=== PATIENT | female | born 1980 | race Caucasian/White ===

== ENCOUNTER 2016-03-02 09:31 | Emergency (ER) | payer OTHER ==
--- NOTE | 2016-03-02 15:08 | ED ORDER SUMMARY ---
..... Patient: TREMAYNE QURESHI OrderSheet [facility] VisitID: [id number] [address] [place] [address] 35y, F Registration Date/Time: 03/02/2016 ORDER SHEET Weight: 43.3 kg (measured) Allergies: NSAIDs GENERAL ORDERS: - (OBTAIN ACTUAL WEIGHT PLEASE.) (10:03/02/2016 Philly GAMA) (Ack 10:37 TBergley) (10:55 JSimbeck R.N.) -- (LAST TWO ED RECORDS FROM [facility]. (THIS WEEK I THINK)) (10:03/02/2016 Philly GAMA) (Ack 10:37 TBergley) (13:46 JSimbeck R.N.) CBC w Diff Urgent (10:34 03/02/2016 Philly GAMA) (10:37 JSimbeck R.N.) (Ack 10:37 TBergley) (10:37 TBergley) CMP Urgent (10:34 03/02/2016 Philly GAMA) (10:37 JSimbeck R.N.) (Ack 10:37 TBergley) (10:37 TBergley) UA-Culture if indicated Urgent (10:34 03/02/2016 Philly GAMA) (Ack 10:37 TBergley) (13:16 JSimbeck R.N.) Urine Urgent (10:34 03/02/2016 Philly GAMA) (Ack 10:37 TBergley) (13:16 JSimbeck R.N.) Urine Drug Screen Urgent (10:34 03/02/2016 Philly GAMA) (Ack 10:37 TBergley) (13:16 JSimbeck R.N.) - (GATORIDE) (14:03 03/02/2016 Philly GAMA) (14:05 TBergley) MEDICATION ORDERS: IV FLUIDS: IV NS : initial bolus none -, then 1000 mL/hr for 2h (NOW); Urgent (10:30 03/02/2016 Philly GAMA) (10:54 JSimbeck R.N.) Benadryl IV 50 mg (NOW) (10:33 03/02/2016 Philly GAMA) (Ack 10:55 Alfonso R.N.) (11:04 Alfonso R.N.) Haldol IV 4 mg (NOW) (10:33 03/02/2016 Philly GAMA) (10:55 Alfonso R.N.) Haldol IV 2 mg (NOW) (11:05 03/02/2016 Philly GAMA) (11:27 Alfonso R.N.) Ceftriaxone IV 1 gm/50mL (NOW) (14:03 03/02/2016 Philly GAMA) (Ack 14:53 KIANAimbeck R.N.) (14:59 Mattieeck R.N.) ORDER SHEET NOTES: [Electronically signed by Dusty León R.N. (18:42 03/02/2016)] [Electronically signed by Garrett Rajan MD (13:23 03/04/2016)] [Electronically locked/signed by Dusty León R.N. (18:42 03/02/2016)]
--- NOTE | 2016-03-02 15:08 | ED ORDER SUMMARY ---
..... Patient: TREMAYNE QURESHI OrderSheet [facility] VisitID: [id number] [address] [place] [address] 35y, F Registration Date/Time: 03/02/2016 ORDER SHEET Weight: 43.3 kg (measured) Allergies: NSAIDs GENERAL ORDERS: - (OBTAIN ACTUAL WEIGHT PLEASE.) (10:03/02/2016 Philly GAMA) (Ack 10:37 TBergley) (10:55 JSimbeck R.N.) -- (LAST TWO ED RECORDS FROM [facility] (THIS WEEK I THINK)) (10:03/02/2016 Philly GAMA) (Ack 10:37 TBergley) (13:46 JSimbeck R.N.) CBC w Diff Urgent (10:34 03/02/2016 Philly GAMA) (10:37 JSimbeck R.N.) (Ack 10:37 TBergley) (10:37 TBergley) CMP Urgent (10:34 03/02/2016 Philly GAMA) (10:37 JSimbeck R.N.) (Ack 10:37 TBergley) (10:37 TBergley) UA-Culture if indicated Urgent (10:34 03/02/2016 Philly GAMA) (Ack 10:37 TBergley) (13:16 JSimbeck R.N.) Urine Urgent (10:34 03/02/2016 Philly GAMA) (Ack 10:37 TBergley) (13:16 JSimbeck R.N.) Urine Drug Screen Urgent (10:34 03/02/2016 Philly GAMA) (Ack 10:37 TBergley) (13:16 JSimbeck R.N.) - (GATORIDE) (14:03 03/02/2016 Philly GAMA) (14:05 TBergley) MEDICATION ORDERS: IV FLUIDS: IV NS : initial bolus none -, then 1000 mL/hr for 2h (NOW); Urgent (10:30 03/02/2016 Philly GAMA) (10:54 JSimbeck R.N.) Benadryl IV 50 mg (NOW) (10:33 03/02/2016 Philly GAMA) (Ack 10:55 Alfonso R.N.) (11:04 Alfonso R.N.) Haldol IV 4 mg (NOW) (10:33 03/02/2016 Philly GAMA) (10:55 Alfonso R.N.) Haldol IV 2 mg (NOW) (11:05 03/02/2016 Philly GAMA) (11:27 Alfonso R.N.) Ceftriaxone IV 1 gm/50mL (NOW) (14:03 03/02/2016 Philly GAMA) (Ack 14:53 KIANAimbeck R.N.) (14:59 Mattieeck R.N.) ORDER SHEET NOTES: [Electronically signed by Dusty León R.N. (18:42 03/02/2016)] [Electronically signed by Garrett Rajan MD (13:23 03/04/2016)] [Electronically locked/signed by Dusty León R.N. (18:42 03/02/2016)]
--- NOTE | 2016-03-02 15:08 | ED NURSING NOTES ---
Clinical Report - Nurses [facility] [address] [place] [address] 03/02/2016 9:31 Patient: [id number] TRI[facility] Triage time 09:43. Acuity: LEVEL 3. Chief Complaint: ABDOMINAL PAIN, NAUSEA, VOMITING and DIARRHEA and (unplanned 10 lb weight loss in 2 weeks). 09:56 03/02/16. SOLE COMA SCORE: Emmett Coma Scale: 15- eyes open spontaneously (4); best verbal response- oriented x 4 (5); best motor response- obeys commands (6). --09:56 Dusty León R.N. 09:43 03/02/16. BP: 103/79 taken on the left arm, while sitting. HR: 102. RR: 16. O2 saturation: 98% on room air. Temp: 98.1 F (oral). Pain level now: 10/03. --09:56 Dusty León R.N. Height/Length: 64 inches Per Patient. --09:51 Dusty León R.N.. <<STRICKEN ENTRY-- Weight: 43.5 kg stated. BMI: 16.5. --END STRIKE>> Correction --09:51 Dusty León R.N.. Weight: 43.3 kg measured. BMI: 16.4. --09:51 Dusty León R.N. Medications Zofran ODT Oral (Tablet Dispersible 4 mg) 1 - 2 tabs, Q6 to 8 hours as needed, Nausea. --09:45 Dusty León R.N. Prazosin HCl Oral (Capsule 1 mg) 1 capsule, at bedtime, Nightmares. --09:45 Dusty León R.N. Reglan Oral (Tablet 10 mg) 1 tablet, 3x a day as needed, Nausea/vomiting. --09:45 Dusty León R.N. HydrOXYzine HCl Oral (Tablet 50 mg) 1 - 2 tabs, q6 hours as needed, Anxiety. --09:46 Dusty León R.N. TraZODone HCl Oral (Tablet 50 mg) 1 - 2, at bedtime. --09:46 Dusty León R.N. Phenergan (Promethazine) Rectal. --:49 Dusty León R.N. Pepto-Bismol Oral. --:49 Dusty León R.N. Allergies NSAIDs. --09:45 Dusty León R.N. History Arrived by private vehicle. Historian: patient. Onset. (2 weeks). ( Unable to retain any foods or fluids). Last oral intake by patient was (Friday (fluids)). SOCIAL HX: Heavy tobacco smoker (cigarette)- 1 pack per day. Occasional alcohol use. History of occasional drug use: marijuana. ABUSE ASSESSMENT: No report of abuse. SELF HARM ASSESSMENT: A self harm assessment was performed. The patient answered "no" to the question "Do you have thoughts of harming or killing yourself?" and "Have you recently had thoughts about harming or killing others?". --:56 Dusty León R.N. PROBLEMS: Gastritis. Hypokalemia. Anxiety Reaction. Neck Injury. Neck Pain. Pelvic Pain. Endometriosis. Substance Abuse. GI Bleeding. Leukocytosis. Gastroenteritis. Immunizations. Abdominal Pain. Vomiting. Gastroesophageal Reflux. Otitis Media. Gastroesophageal Reflux Disease. Irritable Bowel Syndrome. Pneumonia. Knee Injury. --:49 Dusty León R.N. Pelvic Inflammatory Disease [RuleOut]. Ovarian Torsion [RuleOut]. Gastritis [RuleOut]. --:49 Dusty León R.N. The following entry was modified by Dusty León R.N., 10:30 <<STRICKEN ENTRY-- LNMP - Last Normal Menstrual Period. --20:21 Dusty León R.N. --END STRIKE>>. ADDITIONAL SURGERIES: Colonoscopy. . Laparoscopy. Tubal Ligation. --09:50 Dusty León R.N. Interventions ID band on patient. To treatment room. --:56 Dusty León R.N. PHYSICAL ASSESSMENT late entry -09:51. To room via wheelchair. GENERAL / NEURO / PSYCH: Alert. Oriented X 4. Appears in pain. ( lethargic, weak, c/o chills). HEENT: Mucous membranes are pink. RESPIRATORY: Respirations not labored. Breath sounds within normal limits. CVS: Capillary refill less than 2 seconds. GI / : The patient has had nausea and diarrhea. Emesis noted. Abdominal tenderness diffusely (RUQ is the most painful, even to light touch). Guarding present. Absent bowel sounds in all quadrants. SKIN: Skin is warm and dry. --10:21 Dusty León R.N. NURSING PROGRESS NOTES late entry -09:55. Pulse oximeter and NIBP monitor placed on patient; monitor alarms on. Head of bed elevated. Reassurance given. Two patient identifiers checked. Call light placed in reach. Bed placed in lowest position. Brakes of bed on. Patient ready for evaluation- chart flagged. --10:22 Dusty León R.N. 10:05 03/02/2016 Site #1 started via IV in the right hand with an 22g angiocath, with aseptic technique and good blood return; two attempts. Blood drawn: rainbow set. Labeled in the presence of the patient and sent to the lab. Saline lock flushed with 10 mL saline. --10:22 Dusty León R.N. 10:45 03/02/2016 Started bag #1 1000 mL IV Fluids IV NS (Saline); at 1000 mL/hr over 1 hour(s) via site #1. Allergies verified and confirmed 5 rights. IV patency established. IV site checked: no pain, redness, or swelling. IV flushed thoroughly pre- and post-medication administration. --10:54 Dusty León R.N. 10:46 03/02/2016 Benadryl (DiphenhydrAMINE HCl) IVP 50 mg given over 2 minute(s) via site #1. Allergies verified, confirmed 5 rights and sedative warning given to the patient. IV patency established. IV site checked: no pain, redness, or swelling. IV flushed thoroughly pre- and post-medication administration. IVP given by RN. --11:04 Dusty León R.N. 10:48 03/02/2016 HALDOL (Haloperidol Lactate) IVP 4 mg given over 1 minute(s) via site #1. Allergies verified, confirmed 5 rights and sedative warning given to the patient. IV patency established. IV site checked: no pain, redness, or swelling. IV flushed thoroughly pre- and post-medication administration. IVP given by RN. --10:55 Dusty León R.N. 11:04 03/02/2016 Benadryl IVP Response: no adverse reaction symptoms have improved. --11:04 Dusty León R.N. 11:04 03/02/2016 HALDOL IVP Response: no adverse reaction symptoms have improved. --11:04 Dusty León R.N. 11:20 03/02/2016 HALDOL (Haloperidol Lactate) IVP 2 mg given over 1 minute(s) via site #1. Allergies verified, confirmed 5 rights and sedative warning given to the patient. IV patency established. IV site checked: no pain, redness, or swelling. IV flushed thoroughly pre- and post-medication administration. IVP given by RN. --11:27 Dusty León R.N. 11:52 03/02/2016 HALDOL IVP Response: no adverse reaction symptoms have improved. --11:52 Dusty León R.N. 11:55 03/02/2016 IV Fluids IV NS Bag Change: bag #1 completed. Total amount infused: 1000. STARTED bag #2 (1000 mL) at 1000 mL/hr. Confirmed 5 rights. IV patency established. IV site checked: no pain, redness, or swelling. IV flushed thoroughly. --11:58 Dusty León R.N. 10:00 03/02/16. BP: 114/76. HR: 85. RR: 16. O2 saturation: 99% on room air. Pain level now: 10/03. --12:07 Dusty León R.N. 10:30 03/02/16. BP: 111/75. HR: 89. RR: 16. O2 saturation: 97% on room air. Pain level now: 10/03. --12:09 Dusty León R.N. 11:30 03/02/16. BP: 108/70. HR: 81. RR: 16. O2 saturation: 96%. Pain level now: 05/03. --12:10 Dusty León R.N. 11:30 03/02/16. BP: 102/84. HR: 80. RR: 16. O2 saturation: 95%. Pain level now: 0/10. Additional comments: asleep. --12:14 Dusty León R.N. 12:14 03/02/16. Pulse oximeter and NIBP monitor placed on patient; monitor alarms on. Head of bed elevated. Reassurance given. Call light placed in reach. Side rails up x 2. Bed placed in lowest position. Brakes of bed on. --12:14 Dusty León R.N. 13:00 03/02/2016 IV Fluids IV NS Discontinued: bag #2 completed. Total amount infused: 1000 mL. IV patency established. IV site checked: no pain, redness, or swelling. IV flushed thoroughly. --13:17 Dusty León R.N. late entry -13:16. Head of bed elevated. Reassurance given. Reassessment after fluids administered and medication administered. She is calm and resting quietly. Overall patient status is improved. ( C/o of feeling very weak. She was able to walk to the BR and provided a urine sample. No nausea.). Call light placed in reach. Side rails up x 1. Bed placed in lowest position. Brakes of bed on. Patient waiting for lab results. --13:29 Dusty León R.N. 12:00 03/02/16. BP: 113/73. HR: 82. RR: 16. O2 saturation: 96% on room air. Pain level now: 0/10. --13:30 Dusty León R.N. 12:30 03/02/16. BP: 108/75. HR: 84. RR: 16. O2 saturation: 97% on room air. Pain level now: 0/10. --13:31 Dusty León R.N. 13:30 03/02/16. BP: 100/66. HR: 82. RR: 16. O2 saturation: 96% on room air. Pain level now: 0/10. --13:31 Dusty León R.N. 14:55 03/02/2016 Started 1 gm of Ceftriaxone IVPB in bag #1 50 mL; at 100 mL/hr over 30 minute(s) via site #1; Allergies verified and confirmed 5 rights. IV patency established. IV site checked: no pain, redness, or swelling. IV flushed thoroughly pre- and post-medication administration. --14:59 Dusty León R.N. DISPOSITION / DISCHARGE Condition at departure: improved. The goals identified in the patient's plan of care were met. No learning barriers present. Discharge instructions provided and reviewed with the patient. Reviewed medication(s) side effects, precautions, dosing and course information. Reviewed need for increased fluid intake. Patient verbalized understanding. Written instructions provided in Chinese. The patient was discharged home and accompanied by broom machine operator. She left the Emergency Department ambulatory and via private vehicle. Patient driving. --15:30 Hayden Healy R.N. 15:29 03/02/16. BP: 101/64. HR: 98. RR: 16. O2 saturation: 97% on room air. Temp: 98.8 F (oral). --15:30 Hayden Healy R.N. Departure time: 1330 PM. --15:31 Hayden Healy R.N. 15:31 03/02/16. Pain level now 0/10. --15:31 Hayden Healy R.N. 15:03/02/2016 Site #1 removed upon discharge. --15:31 Hayden Healy R.N. 15:31 03/02/2016 Ceftriaxone IVPB Discontinued: bag #1 completed. Total amount infused: 50 mL. IV patency established. IV site checked: no pain, redness, or swelling. IV flushed thoroughly. --15:31 Hayden Healy R.N. Locked/Released at 03/02/2016 18:42 by Dusty León R.N.
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
--- NOTE | 2016-03-04 13:23 | ED MED RECONCILIATION SUMMARY ---
Patient: TREMAYNE QURESHI Medication Reconciliation Report [facility] VisitID: [id number] [address] [place] [address] 35y, F Registration Date/Time: 03/02/2016 Weight: 43.3 kg Height/Length: 64 in. BMI: 16.4 ALLERGIES: NSAIDs The patient's Home Medications are listed below: THE FOLLOWING MEDICATIONS NEED TO BE RECONCILED: HydrOXYzine HCl Oral (50 mg) 1 - 2 tabs, q6 hours, Anxiety Pepto-Bismol Oral Phenergan (Promethazine) Rectal Prazosin HCl Oral (1 mg) 1 capsule, at bedtime, Nightmares Reglan Oral (10 mg) 1 tablet, 3x a day, Nausea/vomiting TraZODone HCl Oral (50 mg) 1 - 2, at bedtime Zofran ODT Oral (4 mg) 1 - 2 tabs, Q6 to 8 hours, Nausea The source(s) of the original Home Medication information: Not obtained. The following Medications were given to the patient in the Emergency Department: IV NS IV Fluids bolus 0, then 1000 mL/hr, administered: 03/02/2016 10:45:00 AM HALDOL [IVP] IVP 4 mg, administered: 03/02/2016 10:48:00 AM Benadryl [IVP] IVP 50 mg, administered: 03/02/2016 10:46:00 AM HALDOL [IVP] IVP 2 mg, administered: 03/02/2016 11:20:00 AM Ceftriaxone [IVPB] IVPB bolus 0, then 1 gm 100 mL/hr, administered: 03/02/2016 2:55:00 PM The following Medications were prescribed to the patient: Macrodantin 100 mg: take 1 capsule orally every 6 hours for 7 days. No refills. Substitution is permissible. -- Garrett Rajan MD
--- NOTE | 2016-03-04 13:23 | ED MAR SUMMARY ---
..... Medication Administration Record [facility] [address] [place] [address] Patient: TREMAYNE QURESHI Visit ID: [id number] 35y, F Weight: 43.3 kg Height/Length: 64 in BMI: 16.4 ALLERGIES: NSAIDs Start 10:45 03/02/2016 Dusty León R.N., Stop 13:00 03/02/2016 Dusty León R.N. Medication Administered: IV NS (SALINE), Dose: IV Fluids over 1 hour(s), Rate: 1000 mL/hr, Dispensed: 1000 mL bag, Site: #1 right hand. Medication Ordered: IV NS : initial bolus none -, then 1000 mL/hr for 2h (NOW); Urgent. Given 10:46 03/02/2016 Dusty León R.N. Medication Administered: BENADRYL [IVP] (DIPHENHYDRAMINE HCL), Dose: 50 mg IVP over 2 minute(s), Site: #1 right hand. Medication Ordered: Benadryl IV 50 mg (NOW). Given 10:48 03/02/2016 Dusty León R.N. Medication Administered: HALDOL [IVP] (HALOPERIDOL LACTATE), Dose: 4 mg IVP over 1 minute(s), Site: #1 right hand. Medication Ordered: Haldol IV 4 mg (NOW). Given 11:20 03/02/2016 Dusty León R.N. Medication Administered: HALDOL [IVP] (HALOPERIDOL LACTATE), Dose: 2 mg IVP over 1 minute(s), Site: #1 right hand. Medication Ordered: Haldol IV 2 mg (NOW). Start 14:55 03/02/2016 Dusty León R.N., Stop 15:31 03/02/2016 Hayden Healy R.N. Medication Administered: CEFTRIAXONE [IVPB], Dose: 1 gm IVPB over 30 minute(s), Rate: 100 mL/hr, Dispensed: 50 mL bag, Site: #1 right hand. Medication Ordered: Ceftriaxone IV 1 gm/50mL (NOW).
--- NOTE | 2016-03-04 13:23 | ED MAR SUMMARY ---
..... Medication Administration Record [facility] [address] [place] [address] Patient: TREMAYNE QURESHI Visit ID: [id number] 35y, F Weight: 43.3 kg Height/Length: 64 in BMI: 16.4 ALLERGIES: NSAIDs Start 10:45 03/02/2016 Dusty León R.N., Stop 13:00 03/02/2016 Dusty León R.N. Medication Administered: IV NS (SALINE), Dose: IV Fluids over 1 hour(s), Rate: 1000 mL/hr, Dispensed: 1000 mL bag, Site: #1 right hand. Medication Ordered: IV NS : initial bolus none -, then 1000 mL/hr for 2h (NOW); Urgent. Given 10:46 03/02/2016 Dusty León R.N. Medication Administered: BENADRYL [IVP] (DIPHENHYDRAMINE HCL), Dose: 50 mg IVP over 2 minute(s), Site: #1 right hand. Medication Ordered: Benadryl IV 50 mg (NOW). Given 10:48 03/02/2016 Dusty León R.N. Medication Administered: HALDOL [IVP] (HALOPERIDOL LACTATE), Dose: 4 mg IVP over 1 minute(s), Site: #1 right hand. Medication Ordered: Haldol IV 4 mg (NOW). Given 11:20 03/02/2016 Dusty León R.N. Medication Administered: HALDOL [IVP] (HALOPERIDOL LACTATE), Dose: 2 mg IVP over 1 minute(s), Site: #1 right hand. Medication Ordered: Haldol IV 2 mg (NOW). Start 14:55 03/02/2016 Dusty León R.N., Stop 15:31 03/02/2016 Hayden Healy R.N. Medication Administered: CEFTRIAXONE [IVPB], Dose: 1 gm IVPB over 30 minute(s), Rate: 100 mL/hr, Dispensed: 50 mL bag, Site: #1 right hand. Medication Ordered: Ceftriaxone IV 1 gm/50mL (NOW).
--- NOTE | 2016-03-04 13:23 | ED MED RECONCILIATION SUMMARY ---
Patient: TREMAYNE QURESHI Medication Reconciliation Report [facility] VisitID: [id number] [address] [place] [address] 35y, F Registration Date/Time: 03/02/2016 Weight: 43.3 kg Height/Length: 64 in. BMI: 16.4 ALLERGIES: NSAIDs The patient's Home Medications are listed below: THE FOLLOWING MEDICATIONS NEED TO BE RECONCILED: HydrOXYzine HCl Oral (50 mg) 1 - 2 tabs, q6 hours, Anxiety Pepto-Bismol Oral Phenergan (Promethazine) Rectal Prazosin HCl Oral (1 mg) 1 capsule, at bedtime, Nightmares Reglan Oral (10 mg) 1 tablet, 3x a day, Nausea/vomiting TraZODone HCl Oral (50 mg) 1 - 2, at bedtime Zofran ODT Oral (4 mg) 1 - 2 tabs, Q6 to 8 hours, Nausea The source(s) of the original Home Medication information: Not obtained. The following Medications were given to the patient in the Emergency Department: IV NS IV Fluids bolus 0, then 1000 mL/hr, administered: 03/02/2016 10:45:00 AM HALDOL [IVP] IVP 4 mg, administered: 03/02/2016 10:48:00 AM Benadryl [IVP] IVP 50 mg, administered: 03/02/2016 10:46:00 AM HALDOL [IVP] IVP 2 mg, administered: 03/02/2016 11:20:00 AM Ceftriaxone [IVPB] IVPB bolus 0, then 1 gm 100 mL/hr, administered: 03/02/2016 2:55:00 PM The following Medications were prescribed to the patient: Macrodantin 100 mg: take 1 capsule orally every 6 hours for 7 days. No refills. Substitution is permissible. -- Garrett Rajan MD
--- NOTE | 2016-03-04 13:23 | ED DISCHARGE INSTRUCTIONS ---
Patient: TREMAYNE QURESHI General Instructions [facility] VisitID: [id number] [address] [place] [address] 35y, F Registration Date/Time: 03/02/2016 Acute abdominal pain of unknown cause. INSTRUCTIONS (YOU PROBABLY HAVE A URINARY INFECTION. IT DID NOT CAUSE THE PAIN OR VOMITING WE GAVE BENADRYL AND HALDOL FOR THE PAIN AND VOMITING. MAKE THE GI APPOINTMENT AT THE [facility]). Prescription Medications: Macrodantin 100 mg: take 1 capsule orally every 6 hours for 7 days. No refills. Substitution is permissible. Follow-up: Follow up with your doctor. Call for the next available appointment. Understanding of the discharge instructions verbalized by patient. ADDITIONAL INFORMATION Abdominal Pain, Unknown Cause (Female) The exact cause of your abdominal (stomach) pain is not certain. This does not mean that this is something to worry about, or the right tests were not done. Everyone likes to know the exact cause of the problem, but sometimes with abdominal pain, there is no clear-cut cause, and this could be a good thing. The good news is that your symptoms can be treated, and you will feel better. Your condition does not seem serious now; however, sometimes the signs of a serious problem may take more time to appear. For this reason,it is important for you to watch for any new symptoms, problems,or worsening of your condition. Over the next few days, the abdominal pain may come and go, or be continuous. Other common symptoms can include nausea and vomiting. Sometimes it can be difficult to tell if you feel nauseous, you may just feel bad and not associate that feeling with nausea. Constipation, diarrhea, and a fever may go along with the pain. The pain may continue even if treated correctly over the following days. Depending on how things go, sometimes the cause can become clear and may require further or different treatment. Additional evaluations, medications, or tests may be needed. Home care Your health care provider may prescribe medications for pain, symptoms, or an infection. Follow the health care provider's instructions for taking these medications. General care Rest until your next exam. No strenuous activities. Try to find positions that ease discomfort. A small pillow placed on the abdomen may help relieve pain. Something warm on your abdomen (such as a heating pad) may help, but be careful not to burn yourself. Diet Do not force yourself to eat, especially if having cramps, vomiting, or diarrhea. Water is important so you do not get dehydrated. Soup may also be good. Sports drinks may also help, especially if they are not too acidic. Make sure you don't drink sugary drinks as this can make things worse. Take liquids in small amounts. Do not guzzle them. Caffeine sometimes makes the pain and cramping worse. Avoid dairy products if you have vomiting or diarrhea. Don't eat large amounts at a time. Wait a few minutes between bites. Eat a diet low in fiber (called a low-residue diet). Foods allowed include refined breads, white rice, fruit and vegetable juices without pulp, tender meats. These foods will pass more easily through the intestine. Avoid whole-grain foods, whole fruits and vegetables, meats, seeds and nuts, fried or fatty foods, dairy, alcohol and spicy foods until your symptoms go away. Follow-up care Follow up with your health care provider as instructed, or if your pain does not begin to improve in the next 24 hours. When to seek medical care Seek prompt medical care if any of the following occur: Pain gets worse or moves to the right lower abdomen New or worsening vomiting or diarrhea Swelling of the abdomen Unable to pass stool for more than three days Fever of 100.4F (38C) or higher, or as directed by your healthcare provider. Blood in vomit or bowel movements (dark red or black color) Jaundice (yellow color of eyes and skin) Weakness, dizziness Chest, arm, back, neck or jaw pain Unexpected vaginal bleeding or missed period Call 911 Call emergency services if any of the following occur: Trouble breathing Confusion Fainting or loss of consciousness Rapid heart rate Seizure You have been given the following additional information: Abdominal Pain, Unknown Cause, (Female) (Electronically signed by Garrett Rajan MD 03/04/2016 13:23)
== END 2016-03-02 15:32 | disposition home or self-care (01) ==
LOC: ED SRH 09:31
DX: R10.84 Generalized abdominal pain (principal); K21.9 Gastro-esophageal reflux disease without esophagitis; Z79.899 Other long term (current) drug therapy; F17.210 Nicotine dependence, cigarettes, uncomplicated; Z88.6 Allergy status to analgesic agent
CPT/HCPCS: 90004; 90100; 92760; 92761; 92762; 92763; 92764; 92765; 92766; 92767; 93070; 95059